=== PATIENT | male | born 1960 | race Caucasian/White ===

== ENCOUNTER → 2017-01-01 | Outpatient (CLI) | payer MEDICARE, OTHER ==
[~2017-01-01] MED LIST: ASPIRIN 81M81 MG/TA2 PO; CEPHALEXIN500 M1 PO; LIDODERM PATCH TP; MOTRIN 800800 MG/TAB PO; NORCO 325 MG-51 TAB PO; NORVASC 10MG10 MG PO; ZESTRIL40 MG PO
== END ==
LOC: COL.RAD 08:39
DX: M50.222 Other cervical disc displacement at C5-C6 level (principal); M41.86 Other forms of scoliosis, lumbar region; M25.78 Osteophyte, vertebrae

== ENCOUNTER → 2017-02-08 | Outpatient (CLI) | payer MEDICARE, OTHER ==
[~2017-02-08] VITALS: Ht 188 cm; Wt 96.6 kg
[2017-02-08 11:51] VITALS: BP 118/96; PULSE 85
[2017-02-08 13:45] VITALS: BP 156/100; PULSE 82
[2017-02-08 14:00] VITALS: BP 155/96; PULSE 72
== END ==
LOC: COL.RAD 11:39
DX: M48.06 Spinal stenosis, lumbar region (principal); M47.26 Other spondylosis with radiculopathy, lumbar region
CPT/HCPCS: J3301

== ENCOUNTER → 2017-02-24 | Outpatient (CLI) | payer MEDICARE, OTHER ==
[~2017-02-24] VITALS: Ht 188 cm; Wt 97.3 kg
[2017-02-24 13:42] VITALS: BP 151/91; PULSE 70
== END ==
LOC: COL.RAD 13:22
DX: M47.817 Spondylosis without myelopathy or radiculopathy, lumbosacral region (principal); M41.86 Other forms of scoliosis, lumbar region; M47.22 Other spondylosis with radiculopathy, cervical region; M25.78 Osteophyte, vertebrae
CPT/HCPCS: J3301

== ENCOUNTER → 2017-04-06 | Outpatient (CLI) | payer MEDICARE, OTHER ==
[~2017-04-06] VITALS: Ht 188 cm; Wt 93.8 kg
[2017-04-06 09:48] VITALS: BP 154/98; PULSE 82
[2017-04-06 10:48] VITALS: BP 162/103; PULSE 69
== END ==
LOC: COL.RAD 09:07
DX: M54.5 Low back pain (principal)
CPT/HCPCS: J3301

== ENCOUNTER 2020-06-18 08:45 | Emergency (ER) | payer MEDICARE, OTHER ==
[~2020-06-18] VITALS: Ht 188 cm; Wt 96.4 kg
[2020-06-18 08:51] VITALS: TEMP 98.3
[2020-06-18 09:06] LABS: BASO % 0.4 % (0.0-2.0); EOS # 0.3 (0.0-0.7); EOS % 3.2 % (0-4.0); GRAN # 7.1 (1.4-6.5); HEMATOCRIT 48.2 % (42.0-52.0); HEMOGLOBIN 15.4 g/dl (13.5-18.0); LYMPH # 1.1 (1.2-3.4); LYMPH % 12.1 % (20.0-51.0); MEAN CELL VOLUME 91 fl (80.0-100.0); MEAN CORPUSCULAR HEMOGLOBIN 29 pg (27.0-31.0); MEAN CORPUSCULAR HGB CONC 32 g/dl (33.0-37.0); MEAN PLATELET VOLUME 10.6 fl (7.4-10.4); MONO # 0.9 (0.1-0.6); PLATELET COUNT 187 K/mm3 (130-400); RED BLOOD COUNT 5.28 M/mm3 (4.20-5.60); REDCELL DISTRIBUTION WIDTH-CV 14.5 % (11.5-14.5)
[2020-06-18 09:13] LABS: PROTHROMBIN TIME 11.2 SECONDS (9.7-12.8)
[2020-06-18 09:14] LABS: ALBUMIN 4.7 gm/dL (3.5-5.0); BILIRUBIN,TOTAL 1.1 mg/dL (0.0-1.0); CALCIUM 8.9 mg/dL (8.4-10.2); CREATININE, serum 1.06 (0.66-1.25); POTASSIUM 4.4 mmol/L (3.4-5.0); TOTAL PROTEIN 7.9 gm/dL (6.4-8.2)
[2020-06-18 09:15] LABS: PARTIAL THROMBOPLASTIN TIME 33.7 SECONDS (26.0-37.0)
[2020-06-18 09:28] LABS: TROPONIN-I 15.5 ng/mL (0.000-0.035)
[2020-06-18 11:19] VITALS: BP 131/88; PULSE 61
== END 2020-06-18 11:10 ==
LOC: COL.ER 08:45
PROVIDERS: Family Medicine
DX: I21.4 Non-ST elevation (NSTEMI) myocardial infarction (principal); Z95.0 Presence of cardiac pacemaker; Z79.82 Long term (current) use of aspirin
CPT/HCPCS: J1644; J2270; J2405

== ENCOUNTER 2022-06-22 11:51 | Day surgery (SDC) | payer MEDICARE, OTHER ==
[~2022-06-22] VITALS: Ht 188.1 cm; Wt 96.3 kg
[2022-06-22] VITALS (10 sets, daily range): BP systolic 136–162; BP diastolic 82–99; PULSE 60–73; TEMP 98.4
[~2022-06-22 11:51] MED LIST changes: +ASPIRIN 32325 MG/TAB PO; -ASPIRIN 81M81 MG/TA2 PO
[2022-06-22 12:30] LABS: HEMOGLOBIN 17.5 g/dl (13.5-18.0); MEAN CELL VOLUME 92 fl (80.0-100.0); MEAN CORPUSCULAR HEMOGLOBIN 30 pg (27-31); MEAN CORPUSCULAR HGB CONC 33 g/dl (33.0-37.0); MEAN PLATELET VOLUME 10.8 fl (7.4-10.4); PLATELET COUNT 193 K/mm3 (130-400); RED BLOOD COUNT 5.85 M/mm3 (4.20-5.60)
[2022-06-22 12:37] LABS: HEMATOCRIT 53.6 % (42.0-52.0)
[2022-06-22] MEDS ORDERED: COREG 25MG25 MG/TAB PO (12:41)
[2022-06-22] MEDS ORDERED: PLAVIX 75MG TAB75 MG PO (12:42)
[2022-06-22] MEDS ORDERED: BENADRYL25 M2 PO (12:42)
[2022-06-22] MEDS ORDERED: CLARITIN 1010 MG/TAB PO (12:43)
[2022-06-22] MEDS ORDERED: LIPITOR 40MG TA40 MG PO (12:44)
[2022-06-22 12:48] LABS: CALCIUM 9.4 mg/dL (8.4-10.2); CREATININE, serum 1.17 mg/dL (0.72-1.25); POTASSIUM 4.3 mmol/L (3.5-4.5)
[2022-06-22 12:49] LABS: INR 1.1 (0.8-3.0); PROTHROMBIN TIME 12.2 SECONDS (9.7-12.8)
[2022-06-22] MEDS ORDERED: TYLENOL 8 HR PO (12:50)
--- NOTE | 2022-06-22 13:15 | NUR ---
Pt to procedure,report to SONIA Escoto.
--- NOTE | 2022-06-22 13:20 | NUR ---
Pt to procedure.
--- NOTE | 2022-06-22 13:31 | NUR ---
See merge for all medication, assessment, intervention, and vital sign times.
[2022-06-22] MEDS ORDERED: CEPHALEXIN500 M1 PO (14:53)
--- NOTE | 2022-06-22 16:37 | NUR ---
Discharge instructions given to pt.Pt verbalizes understanding.pt escorted out via wheelchair by this nurse.
== END 2022-06-22 16:45 ==
LOC: COL.CAR 11:51
PROVIDERS: Internal Medicine Cardiovascular Disease
DX: Z45.010 Encounter for checking and testing of cardiac pacemaker pulse generator [battery] (principal); I45.9 Conduction disorder, unspecified
CPT/HCPCS: C1785; J0690; J2250; J3010; J7030

== ENCOUNTER 2022-06-27 08:35 | Emergency (ER) | payer MEDICARE, OTHER ==
[~2022-06-27] VITALS: Ht 188 cm; Wt 96.4 kg
[~2022-06-27 08:35] MED LIST changes: +BENADRYL25 M2 PO; +CLARITIN 1010 MG/TAB PO; +COREG 25MG25 MG/TAB PO; +LIPITOR 40MG TA40 MG PO; +PLAVIX 75MG TAB75 MG PO; +TYLENOL 8 HR PO
[2022-06-27 09:40] LABS: BASO # 0.1 K/mm3 (0.0-0.2); BASO % 0.6 % (0.0-2.0); EOS # 0.4 K/mm3 (0.0-0.7); EOS % 4.9 % (0.0-4.0); GRAN # 5.6 K/mm3 (1.4-6.5); GRAN % 70.5 % (42.2-75.2); HEMATOCRIT 47.8 % (42.0-52.0); HEMOGLOBIN 15.6 g/dl (13.5-18.0); LYMPH # 1.2 K/mm3 (1.2-3.4); LYMPH % 14.7 % (20.0-51.0); MEAN CELL VOLUME 92 fl (80.0-100.0); MEAN CORPUSCULAR HEMOGLOBIN 30 pg (27-31); MEAN CORPUSCULAR HGB CONC 33 g/dl (33.0-37.0); MEAN PLATELET VOLUME 10.7 fl (7.4-10.4); MONO # 0.7 K/mm3 (0.1-0.6); MONO % 8.9 % (1.7-9.3); PLATELET COUNT 142 K/mm3 (130-400); RED BLOOD COUNT 5.22 M/mm3 (4.20-5.60); REDCELL DISTRIBUTION WIDTH-CV 14.8 % (11.5-14.5)
[2022-06-27 09:54] LABS: ALANINE AMINOTRANSFERASE 15 U/L (0-55); ALBUMIN 3.8 gm/dL (3.4-4.8); ALKALINE PHOSPHATASE 94 U/L (40-150); ANION GAP 10 mmol/L (7-16); AST,SGOT 15 U/L (5-34); BILIRUBIN,TOTAL 1.1 mg/dL (0.2-1.2); BLOOD UREA NITROGEN 13 mg/dL (8-26); CARBON DIOXIDE 25 mmol/L (23-31); CHLORIDE 106 mmol/L (98-107); CREATININE, serum 0.95 mg/dL (0.72-1.25); GLUCOSE 103 mg/dL (70-99); POTASSIUM 4.3 mmol/L (3.5-4.5); SODIUM 141 mmol/L (136-145); TOTAL PROTEIN 7.5 gm/dL (6.2-8.1)
[2022-06-27 10:00] LABS: TROPONIN-I < 0.010 ng/mL (0.00-0.033)
[2022-06-27] MEDS ORDERED: NORCO 325 MG-51 TAB PO (12:30)
[2022-06-27 12:32] VITALS: BP 147/90; PULSE 65; TEMP 97.3
[2022-06-27] MEDS ORDERED: FLEXERIL 1010 MG/TAB PO (12:48)
== END 2022-06-27 12:52 | disposition home or self-care (01) ==
LOC: COL.ER 08:35
PROVIDERS: Personal Emergency Response Attendant
DX: R07.9 Chest pain, unspecified (principal); M54.9 Dorsalgia, unspecified; F17.210 Nicotine dependence, cigarettes, uncomplicated; Z86.79 Personal history of other diseases of the circulatory system; Z95.0 Presence of cardiac pacemaker
CPT/HCPCS: Q9967